=== PATIENT | female | born 2000 | race Caucasian/White ===

== ENCOUNTER 2018-01-20 07:15 | Inpatient (IN) | payer OTHER ==
[~2018-01-20 07:15] MED LIST: ELECTROLYTE-148 SOLN 1,000 ML IV ONE
[2018-01-20] MEDS ORDERED: CITRIC ACID/SODIUM CITRATE 30 ML UNIT-DOSE CUP PO ONE (08:06)
[2018-01-20 08:09] VITALS: BMI 34.3
--- NOTE | 2018-01-20 08:14 | HP ---
Past Medical History - Admission Chief Complaint: 17 yo f ,39.3 weeks ,previous c/s . requsting repeat c /s, risks discussed , , discussed, cx clp, vx -3 , mi , fhr cat 1 History Source: Patient Limitations to Obtaining History: No Limitations - Past Medical History ...: 2 ...Para: 1 ...Term: 1 ...: 0 ...Spon : 0 ...Induced : 0 ...Multiple Gestation: 0 ...LMP: 04/19/17 ... Weeks Gestation by Dates: 39.3 ...EDC by Dates: 01/24/18 ...EDC by Sono: 01/24/18 Infectious Disease: Yes: STD's (previous hx of chlamydia) - Past Surgical History Past Surgical History: Yes: Hx Myomectomy: No Hx Transabdominal Cerclage: No - Smoking History Smoking history: Never smoked Have you smoked in the past 12 months: No - Alcohol/Substance Use Hx Alcohol Use: No - Social History History of Recent Travel: No Home Medications - Allergies Allergies/Adverse Reactions: Allergies Allergy/AdvReac Type Severity Reaction Status Date / Time No Known Allergies Allergy Verified 01/20/18 07:45 - Home Medications Home Medications: Ambulatory Orders Vit/Iron Fum/Folic AC [ Tablet] 1 each PO DAILY 11/06/15 Ferrous Sulfate 325 mg PO DAILY 01/11/18 Review of Systems - Review of Systems Constitutional: reports: No Symptoms Eyes: reports: No Symptoms HENT: reports: No Symptoms Neck: reports: No Symptoms Musculoskeletal: reports: No Symptoms Integumentary: reports: No Symptoms Neurological: reports: No Symptoms Endocrine: reports: No Symptoms Hematology/Lymphatic: reports: No Symptoms Psychiatric: reports: No Symptoms Physical Exam - Maternity Vital Signs: Vital Signs Temperature 98.7 F 01/20/18 07:30 Pulse Rate 105 H 01/20/18 07:30 Respiratory Rate 18 01/20/18 07:30 Blood Pressure 120/79 01/20/18 07:30 O2 Sat by Pulse Oximetry (%) Constitutional: Yes: Well Nourished, No Distress, Calm Eyes: Yes: WNL, Conjunctiva Clear, EOM Intact HENT: Yes: WNL, Atraumatic, Normocephalic Neck: Yes: WNL, Supple, Trachea Midline Cardiovascular: Yes: WNL, Regular Rate and Rhythm Breast(s): Yes: WNL - Abdominal Exam/OB Number of Fetuses: Single Presentation: Vertex Regularity: Irritability Intensity: Unaware Monitor Mode: External Heart Rate Location: [facility] Category: I Accelerations: Uniform Decelerations: None - Vaginal Exam/OB Vaginal Bleediing: No Speculum Exam: No Dilatation (cm): 0 Effacement (%): o Amniotic Membrane Status: Intact Presentation: Vertex/Position Station: -3 - Physical Exam Musculoskeletal: Yes: WNL Extremities: Yes: WNL Edema: LLE: Trace, RLE: Trace Deep Tendon Reflex Grade: Normal +2 ...Motor Strength: WNL Psychiatric: Yes: WNL Hemorrhage Risk Assessment - Risk Factors Medium Risk Factors: Yes: Prior , uterine surgery,or multiple laparotomies Risk Score: 1 Risk Level: Medium Risk Problem List - Problems (1) with 39 completed weeks gestation Code(s): Z3A.39 - 39 WEEKS GESTATION OF (2) Previous section complicating Code(s): O34.219 - MATERNAL CARE FOR UNSP TYPE SCAR FROM PREVIOUS DEL Assessment/Plan repeat c/s, risks discussed, encourged
[2018-01-20] MEDS ORDERED: ELECTROLYTE-148 SOLN 1,000 ML IV SCH (08:15)
[2018-01-20 09:03] LABS: ALBUMIN 2.5 g/dl (3.4-5.0); ALK PHOS 157 U/L (45-117); ANION GAP 8 MMOL/L (8-16); BILIRUBIN,TOTAL 0.4 mg/dL (0.2-1); BLOOD UREA NITROGEN 4 mg/dL (7-18); CALCIUM 8.4 mg/dL (8.5-10.1); CHLORIDE 108 mmol/L (98-107); CO2 24 mmol/L (21-32); CREATININE 0.4 mg/dL (0.55-1.3); GLUCOSE,RANDOM 80 mg/dL (74-106); POTASSIUM 3.8 mmol/L (3.5-5.1); SGOT/AST 16 U/L (15-37); SGPT/ALT 17 U/L (13-61); SODIUM 140 mmol/L (136-145); TOT PROT 5.8 g/dl (6.4-8.2)
[2018-01-20] MEDS ORDERED: morphine SULFATE/Preservative Free 0.5 MG/ML (1cc Syringe) ONE (09:16)
[2018-01-20] MEDS ORDERED: ceFAZolin SODIUM 1 GM VIAL ONE ×2 (09:16→17:17)
[2018-01-20] MEDS ORDERED: OXYTOCIN 20 UNITS in 0.9% NS 40 UNIT/2,000 ML INFUS.BAG IV ONE (09:17)
[2018-01-20] MEDS ORDERED: morphine SULFATE/Preservative Free 0.5 MG/ML (1cc Syringe) SPIN ONE (09:28)
[2018-01-20] MEDS ORDERED: PHENYLEPHRINE HCL 10 MG/1 ML SINGLE DOSE VIAL ONE (09:29)
[2018-01-20] MEDS ORDERED: ONDANSETRON 4 MG/2 ML VIAL IVPUSH PRN (09:49)
[2018-01-20] MEDS ORDERED: BENZOCAINE 20% 57 GM BOTTLE TP PRN (10:19)
[2018-01-20] MEDS ORDERED: BENZOCAINE 28 GM HEMORRHOIDAL OINTMENT PR PRN (10:19)
[2018-01-20] MEDS ORDERED: IBUPROFEN 600 MG TABLET (FP) PO PRN (10:19)
[2018-01-20] MEDS ORDERED: WITCH HAZEL 50% (TUCKS) 40 PAD/JAR PAD TP PRN (10:19)
[2018-01-20] MEDS ORDERED: METHYLERGONOVINE MALEATE 0.2 MG/1 ML AMP IM PRN (10:19)
[2018-01-20] MEDS ORDERED: diphenhydrAMINE HCL 25 MG CAPSULE (FP) PO PRN (10:19)
[2018-01-20] MEDS ORDERED: DEXTROSE 5%-LACTATED RINGERS 1,000 ML IV SCH (10:30)
[2018-01-20] MEDS ORDERED: OXYTOCIN 20 UNITS in 0.9% NS 20 UNIT/1,000 ML INFUS.BAG IV SCH (10:30)
--- NOTE | 2018-01-20 11:16 | OP ---
DATE OF OPERATION: 01/20/2018 PREOPERATIVE DIAGNOSIS: , 39 weeks, previous section, request of repeat section. POSTOPERATIVE DIAGNOSIS: , 39 weeks, previous section, request of repeat section. PROCEDURE: Repeat low segment transverse section. SURGEON: Donovan Hawk MD WOMEN SPECIALIST: KATHERINE River ANESTHESIA: Spinal. ANESTHESIOLOGIST: Emerson Roth MD ESTIMATED BLOOD LOSS: 500 mL. FINDINGS: Live baby boy, TORRES position. OPERATION: The patient was taken to the operating room, had adequate spinal anesthesia. Abdomen and perineum were prepped and draped. Pfannenstiel abdominal skin incision was made. Abdominal wall was cut layer by layer until peritoneum was exposed and incised. Upon entering the abdominal cavity, lower uterine segment was identified, and uterovesical fold of peritoneum was established, bladder was pushed down. Then, with the lower blade of the Cheryle retractor in the pelvis, a low transverse uterine incision was made. Incision extended laterally. Amniotic sac was entered. Clear fluid, head delivered. Nasopharynx was suctioned, and live baby boy was delivered without any difficulty. Placenta was delivered manually. Uterine cavity was cleaned of all remaining tissue. Uterine incision was closed in 2 layers, 1st layer with 0 Biosyn continuous suture, the 2nd layer with 0 Biosyn imbricating the 1st layer. Bladder flap was closed with 0 Biosyn continuous suture. Both tubes and ovaries were checked, were normal. No active bleeding was seen. All the lap pad, sponge, and instrument counts were correct. Then, peritoneum was closed with 0 Biosyn continuous suture, muscles were brought together with interrupted sutures of 0 Biosyn, fascia was closed with 0 Biosyn continuous suture, subcutaneous fat with interrupted suture of 0 Biosyn, and the skin was closed with suha. Patient tolerated the procedure well, left the OR in good condition. Nathaniel [id number]
[2018-01-20] MEDS ORDERED: IBUPROFEN 800 MG/8 ML IJ IVPB ONE (11:52)
[2018-01-20] MEDS: IBUPROFEN 800 MG/8 ML IJ IVPB PRN ×2 (12:00→20:53)
[2018-01-20] MEDS ORDERED: DEXTROSE 5%-WATER - 50 ML IVPB ONE (17:17)
[2018-01-20] MEDS: CEFAZOLIN 1 GM in DEXTROSE 5%-WATER - 50 ML IVPB SCH (17:21)
[2018-01-21] MEDS ORDERED: DEXTROSE 5%-WATER - 50 ML IVPB ONE (01:26)
[2018-01-21] MEDS ORDERED: ceFAZolin SODIUM 1 GM VIAL ONE (01:26)
[2018-01-21] MEDS: CEFAZOLIN 1 GM in DEXTROSE 5%-WATER - 50 ML IVPB SCH (01:27)
[2018-01-21] MEDS: IBUPROFEN 800 MG/8 ML IJ IVPB PRN (03:13)
--- NOTE | 2018-01-21 04:29 | PN ---
Post Progress Note - Subjective Subjective: pt doing well. tolerating diet. Post Day: 1 Type of Delivery: Repeat C/S Vital Signs: Vital Signs Temperature 98.4 F 01/21/18 01:00 Pulse Rate 79 01/21/18 01:00 Respiratory Rate 20 01/21/18 04:00 Blood Pressure 104/53 L 01/21/18 01:00 O2 Sat by Pulse Oximetry (%) 100 01/20/18 11:40 Breast Exam: Yes: Soft Uterus: Yes: Fundus Firm Incision: Yes: Dressing dry and intact Abdomen/GI: Yes: Abdomen soft Lochia: Yes: Rubra Lochia, amount: Small Extremities: Yes: Calves non-tender Problem List - Problems (1) with 39 completed weeks gestation Assessment/Plan: pOD#1 s/p rpt cs doing well d/c rodgers this am diet as tolerated routine postop care Dr. Hernandez Code(s): Z3A.39 - 39 WEEKS GESTATION OF
[2018-01-21 07:49] LABS: BASO % 0.4 % (0-2.0); EOS % 1.3 % (0-4.5); HEMATOCRIT 34.9 % (32.4-45.2); HEMOGLOBIN 11.4 GM/dL (10.7-15.3); MCH 28.9 pg (25.7-33.7); MCHC 32.6 g/dl (32.0-36.0); MEAN CELL VOLUME 88.6 fl (80-96); MEAN PLT VOLUME 8.4 fl (7.5-11.1); MONO % 7.6 % (3.8-10.2); NEUT % 71.7 % (42.8-82.8); PLATELET COUNT 172 K/MM3 (134-434); RBC 3.94 M/mm3 (3.60-5.2); RDW 15.4 % (11.6-15.6); WHITE BLOOD COUNT 9.3 K/mm3 (4.0-10.0)
[2018-01-21] MEDS: SIMETHICONE 80 MG TAB.CHEW (FP) PO PRN ×4 (08:03→23:43)
[2018-01-21] MEDS: ACETAMINOPHEN 325 MG TABLET (FP) PO PRN ×2 (08:03→15:42)
[2018-01-21] MEDS: IBUPROFEN 600 MG TABLET (FP) PO PRN ×4 (08:04→23:44)
[2018-01-21] MEDS: ENOXAPARIN NA (PORCINE) 40 MG/0.4 ML DISP.SYRIN SQ SCH (09:49)
[2018-01-21] MEDS ORDERED: DIPHTH,PERTUSS(ACELL),TET 0.5 ML DISP.SYRIN IM ONE (10:00)
[2018-01-21] MEDS ORDERED: BISACODYL 10 MG SUPP.RECT RC PRN (10:20)
--- NOTE | 2018-01-21 11:37 | PN ---
Progress Note (short form) - Note Progress Note: Anesthesia POD#1 S/P Repeat C- Section under Spinal and Duramorph VSS,no N/V,legs are strong. Nazanin Avalos MD.
[2018-01-21] MEDS: oxyCODONE HCL 5 MG TABLET PO PRN ×3 (17:42→23:43)
[2018-01-22] MEDS: oxyCODONE HCL 5 MG TABLET PO PRN ×6 (01:21→23:29)
[2018-01-22] MEDS: SIMETHICONE 80 MG TAB.CHEW (FP) PO PRN ×5 (06:30→23:29)
[2018-01-22] MEDS: IBUPROFEN 600 MG TABLET (FP) PO PRN ×4 (06:31→23:29)
--- NOTE | 2018-01-22 08:11 | PN ---
Post Progress Note Type of Delivery: Repeat C/S Vital Signs: Vital Signs Temperature 98.2 F 01/21/18 22:00 Pulse Rate 72 01/21/18 22:00 Respiratory Rate 20 01/21/18 22:00 Blood Pressure 112/71 01/21/18 22:00 O2 Sat by Pulse Oximetry (%) 99 01/21/18 21:00 Uterus: Yes: Fundus below umbilicus Incision: Yes: Dressing dry and intact Abdomen/GI: Yes: Abdomen soft Lochia: Yes: Rubra Lochia, amount: Small Extremities: Yes: Calves non-tender Activity: Ambulating - Labs Labs: CBC WBC 9.3 K/mm3 (4.0-10.0) 01/21/18 07:15 RBC 3.94 M/mm3 (3.60-5.2) 01/21/18 07:15 Hgb 11.4 GM/dL (10.7-15.3) 01/21/18 07:15 Hct 34.9 % (32.4-45.2) 01/21/18 07:15 MCV 88.6 fl (80-96) 01/21/18 07:15 MCH 28.9 pg (25.7-33.7) 01/21/18 07:15 MCHC 32.6 g/dl (32.0-36.0) 01/21/18 07:15 RDW 15.4 % (11.6-15.6) 01/21/18 07:15 Plt Count 172 K/MM3 (134-434) D 01/21/18 07:15 MPV 8.4 fl (7.5-11.1) 01/21/18 07:15 Absolute Neuts (auto) 6.7 K/mm3 (1.5-8.0) 01/21/18 07:15 Neutrophils % 71.7 % (42.8-82.8) 01/21/18 07:15 Lymphocytes % 19.0 % (8-40) 01/21/18 07:15 Monocytes % 7.6 % (3.8-10.2) 01/21/18 07:15 Eosinophils % 1.3 % (0-4.5) 01/21/18 07:15 Basophils % 0.4 % (0-2.0) 01/21/18 07:15 Nucleated RBC % 0 % (0-0) 01/21/18 07:15 Assessment/Plan 17yo s/p RLTCS, POD#2 Routine PP care OOB, ambulate PO pain control Anticipate d/c to home by POD#4 Nicolas Blanco MD
[2018-01-22] MEDS: ENOXAPARIN NA (PORCINE) 40 MG/0.4 ML DISP.SYRIN SQ SCH (09:44)
[2018-01-22] MEDS: ACETAMINOPHEN 325 MG TABLET (FP) PO PRN ×2 (14:39→19:16)
[2018-01-22] MEDS ORDERED: SENNOSIDES/DOCUSATE COMBO (SENNA PLUS) TABLET (UD) PO PRN (22:00)
[2018-01-23] MEDS: SIMETHICONE 80 MG TAB.CHEW (FP) PO PRN (04:02)
[2018-01-23] MEDS: ACETAMINOPHEN 325 MG TABLET (FP) PO PRN (04:02)
[2018-01-23] MEDS: IBUPROFEN 600 MG TABLET (FP) PO PRN (04:02)
--- NOTE | 2018-01-23 07:54 | DS ---
Physical Exam-FRONT DESK TEAM MEMBER Vital Signs: Vital Signs Temperature 98.5 F 01/22/18 22:00 Pulse Rate 70 01/22/18 22:00 Respiratory Rate 18 01/22/18 22:00 Blood Pressure 115/71 01/22/18 22:00 O2 Sat by Pulse Oximetry (%) 99 01/21/18 21:00 Constitutional: Yes: Well Nourished, No Distress, Calm Eyes: Yes: WNL, Conjunctiva Clear, EOM Intact HENT: Yes: WNL, Atraumatic, Normocephalic Neck: Yes: WNL, Supple, Trachea Midline Cardiovascular: Yes: WNL, Regular Rate and Rhythm Respiratory: Yes: WNL, Regular, CTA Bilaterally Gastrointestinal: Yes: WNL ...Rectal Exam: Yes: WNL Renal/: Yes: WNL ....Post : Yes: Uterus firm, Uterus non-tender, Slight lochia rubra Breast(s): Yes: WNL Musculoskeletal: Yes: WNL Extremities: Yes: WNL Edema: No Integumentary: Yes: WNL Wound/Incision: Yes: Clean/Dry, Well Approximated Neurological: Yes: WNL, Alert, Oriented ...Motor Strength: WNL Psychiatric: Yes: WNL, Alert, Oriented Labs: CBC, BMP 01/20/18 08:15 Delivery - Delivery Section: Repeat, Low Flap Transverse (no complication) Type of Anesthesia: Spinal Episiotomy/Laceration: None EBL (cc): 500 Delivery, Single - Stages of Labor Date of Delivery: 01/20/18 Time of Delivery: 09:52 Time Placenta Delivered: 09:53 Placenta: Yes: Expressed - Condition of Infant Breaker Layer/Speech And Hearing Director Present: Yes Name: Jorge Osorio Gender: Male Weight: 7 lb 5 oz Position: Right, OA Total Hours ROM (Hrs/Mins): 0/2 - 1 Minute Total Score: 8 5 Minutes Total Score: 9 - Feeding Plan Initial Plan: Elected not to breastfeed exclusively throughout hospitalization Discharge Summary Reason For Visit: REPEAT C SECTION Current Active Problems with 39 completed weeks gestation (Acute) Previous section complicating (Acute) Procedures: Principal: repeat LST c/s Hospital Course: no complication Condition: Good - Instructions Diet, Activity, Other Instructions: regular diet, no intercourse , follow up [facility] care 1 week. if fever, heavy vaginal bleeding call MD Referrals: Donovan Hawk MD [Staff Physician] - Disposition: HOME - Home Medications Comprehensive Discharge Medication List: Ambulatory Orders Vit/Iron Fum/Folic AC [ Tablet] 1 each PO DAILY 11/06/15 Ferrous Sulfate 325 mg PO DAILY 01/11/18 Ibuprofen [Motrin -] 600 mg PO QID #28 tablet 01/23/18
[2018-01-23 08:11] LABS: BASO % 0.5 % (0-2.0); EOS % 3.3 % (0-4.5); HEMATOCRIT 35.7 % (32.4-45.2); HEMOGLOBIN 11.8 GM/dL (10.7-15.3); LYMPH % 28.2 % (8-40); MCH 29.1 pg (25.7-33.7); MEAN CELL VOLUME 88.3 fl (80-96); MEAN PLT VOLUME 7.9 fl (7.5-11.1); PLATELET COUNT 181 K/MM3 (134-434); RBC 4.04 M/mm3 (3.60-5.2); RDW 15.3 % (11.6-15.6); WHITE BLOOD COUNT 6.5 K/mm3 (4.0-10.0)
[2018-01-23 10:11] VITALS: BP 109/63; PULSE 85; TEMP 98.7
[2018-01-23] MEDS: ENOXAPARIN NA (PORCINE) 40 MG/0.4 ML DISP.SYRIN SQ SCH (10:48)
--- NOTE | 2018-01-29 17:06 | PATH ---
Surgical Pathology Report Patient Name: VERA GARCÍA Med. Rec. #: [id number] /Age/Gender: 2000 (Age: 17) / F Account: [id number] Location: [facility] OBS/VAPOR COATER Taken: 01/20/2018 Received: 01/21/2018 Reported: 01/29/2018 Physicians: Donovan Hawk M.D. Specimen(s) Received PLACENTA Clinical History for repeat Final Diagnosis PLACENTA, SECTION: 386 G THIRD TRIMESTER PLACENTA WITH TRIVASCULAR UMBILICAL CORD AND UNREMARKABLE PLACENTAL MEMBRANES. Electronically Signed Yuli Flowers M.D. Gross Description The specimen is received fresh labeled placenta and is a 386 gram, 18.5 x 13.5 x 2.1 cm. placenta with attached membranes and umbilical cord. The attached membranes are moncada, translucent with focal opacities and insert marginally. The umbilical cord measures 33 cm. in length and averages 1.3 cm. in diameter. The cord inserts centrally. No true knots or strictures are identified. Cut surface of the umbilical cord reveals 3 vessels. The surface is david-blue with minimal fibrin deposition and appropriate caliber vessels. The maternal surface is red-brown with focal defects. Sectioning reveals red-brown, spongy parenchyma. No lesions are identified. [employer] Att[employer] sections are submitted in three cassettes as follows: 1- membrane rolls and umbilical cord; 2-3- full thickness sections of placenta. 01/27/2018 saudi01/27/2018
== END 2018-01-23 11:55 | disposition home or self-care (01) | DRG 540 ==
LOC: JLDR 07:15 → J3W 12:26
PROVIDERS: ADMIT Obstetrics & Gynecology; ATTEND Obstetrics & Gynecology
PROC: 10D00Z1 Extraction of Products of Conception, Low, Open Approach (ICD-10-PCS; principal; 2018-01-20)
DX: O34.211 Maternal care for low transverse scar from previous cesarean delivery (principal); N85.8 Other specified noninflammatory disorders of uterus; Z3A.39 39 weeks gestation of pregnancy; Z37.0 Single live birth
CPT/HCPCS: 36415; 80053; 85025; 90686; 90715; 94010; G0008

== ENCOUNTER 2021-01-01 04:43 | Emergency (ER) | payer OTHER ==
[2021-01-01 05:11] VITALS: TEMP 97.9; BMI 33.5
[2021-01-01] MEDS ORDERED: ONDANSETRON 4 MG/2 ML VIAL IVPUSH ONE (06:20)
[2021-01-01] MEDS ORDERED: ACETAMINOPHEN 1000 MG/100 ML VIAL (NON FORMULARY) IVPB ONE (06:20)
[2021-01-01] MEDS ORDERED: ONDANSETRON 4 MG/2 ML VIAL ONE (06:45)
[2021-01-01] MEDS ORDERED: ACETAMINOPHEN INJECTION 100 ML IVPB ONE (06:45)
[2021-01-01 07:03] LABS: BASO % 0.3 % (0-2.0); EOS % 0.4 % (0-4.5); HEMATOCRIT 40.4 % (32.4-45.2); MCHC 34.6 g/dl (32.0-36.0); MEAN CELL VOLUME 86.8 fl (80-96); MEAN PLT VOLUME 8.3 fl (7.5-11.1); MONO % 5.6 % (3.8-10.2); NEUT % 77.7 % (42.8-82.8); PLATELET COUNT 266 10^3/uL (134-434); RBC 4.65 M/mm3 (3.60-5.2); RDW 14.2 % (11.6-15.6); WHITE BLOOD COUNT 9.3 K/mm3 (4.0-10.0)
[2021-01-01 07:29] LABS: CALCIUM 9.5 mg/dL (8.5-10.1)
[2021-01-01 07:30] LABS: ALBUMIN 3.6 g/dl (3.4-5.0); BLOOD UREA NITROGEN 5.2 mg/dL (7-18)
[2021-01-01 07:34] LABS: CREATININE 0.6 mg/dL (0.55-1.3)
[2021-01-01 07:35] LABS: BILIRUBIN,TOTAL 0.6 mg/dL (0.2-1); TOT PROT 7.9 g/dl (6.4-8.2)
[2021-01-01 09:06] VITALS: BP 111/64; PULSE 78
== END 2021-01-01 09:00 | disposition home or self-care (01) ==
LOC: JER 04:43
PROC: 3E033GC Introduction of Other Therapeutic Substance into Peripheral Vein, Percutaneous Approach (ICD-10-PCS; principal; 2021-01-01)
DX: N93.9 Abnormal uterine and vaginal bleeding, unspecified (principal)
CPT/HCPCS: 36415; 76815; 80053; 84702; 85025; 86850; 86900; 86901; 99284-25

== ENCOUNTER 2021-03-24 02:21 | Emergency (ER) | payer OTHER ==
[2021-03-24 03:01] VITALS: BP 122/78; PULSE 58; TEMP 98.3; BMI 33.5
[2021-03-25 19:06] LABS: SARS-CoV-2 NAA Detected (Not Detected)
== END 2021-03-24 03:40 | disposition home or self-care (01) ==
LOC: JER 02:21
DX: B34.9 Viral infection, unspecified (principal); Z11.52 Encounter for screening for COVID-19
CPT/HCPCS: 87804; 87807; 99283-25; C9803; U0003; U0005

== ENCOUNTER 2021-04-17 16:17 | Emergency (ER) | payer OTHER ==
[2021-04-17 16:30] VITALS: BP 100/50; PULSE 83; TEMP 98.8; BMI 32.1
== END 2021-04-17 18:34 | disposition home or self-care (01) ==
LOC: JERFT 16:17
DX: T17.1XXA Foreign body in nostril, initial encounter (principal)
CPT/HCPCS: 99281-25

== ENCOUNTER 2021-04-18 17:14 | Emergency (ER) | payer OTHER ==
[2021-04-18 17:20] VITALS: BP 119/81; PULSE 89; TEMP 97.8; BMI 31.0
[2021-04-18] MEDS ORDERED: diazePAM 5 MG TABLET PO ONE (17:54)
[2021-04-18] MEDS ORDERED: diazePAM 5 MG TABLET ONE (18:01)
[2021-04-18 18:39] LABS: BASO % 0.4 % (0-2.0); EOS % 0.6 % (0-4.5); HEMATOCRIT 43.1 % (32.4-45.2); HEMOGLOBIN 14.4 GM/dL (10.7-15.3); LYMPH % 20.9 % (8-40); MCH 28.6 pg (25.7-33.7); MCHC 33.3 g/dl (32.0-36.0); MEAN CELL VOLUME 85.9 fl (80-96); MEAN PLT VOLUME 8.3 fl (7.5-11.1); MONO % 7.7 % (3.8-10.2); NEUT % 70.4 % (42.8-82.8); PLATELET COUNT 290 10^3/uL (134-434); RBC 5.02 M/mm3 (3.60-5.2); RDW 13.5 % (11.6-15.6); WHITE BLOOD COUNT 8.2 K/mm3 (4.0-10.0)
[2021-04-18 19:22] LABS: ALBUMIN 4.5 g/dl (3.4-5.0); BLOOD UREA NITROGEN 5.8 mg/dL (7-18)
[2021-04-18 19:25] LABS: CREATININE 0.7 mg/dL (0.55-1.3)
[2021-04-18 19:26] LABS: TOT PROT 8.3 g/dl (6.4-8.2)
[2021-04-18 19:27] LABS: BILIRUBIN,TOTAL 0.6 mg/dL (0.2-1)
== END 2021-04-18 21:00 | disposition home or self-care (01) ==
LOC: JERFT 17:14
DX: R42 Dizziness and giddiness (principal); F41.9 Anxiety disorder, unspecified
CPT/HCPCS: 36415; 80053; 85025; 99283-25

== ENCOUNTER 2021-04-27 17:04 | Emergency (ER) | payer OTHER ==
[2021-04-27 17:14] VITALS: BP 121/74; PULSE 61; TEMP 98; BMI 31.2
== END 2021-04-27 20:48 | disposition home or self-care (01) ==
LOC: JER 17:04
DX: R00.1 Bradycardia, unspecified (principal)
CPT/HCPCS: 93005; 93010; 99283-25

== ENCOUNTER 2021-06-12 11:20 | Emergency (ER) | payer OTHER ==
[2021-06-12 11:53] VITALS: BP 110/62; PULSE 68; TEMP 98.1; BMI 29.5
== END 2021-06-12 13:09 | disposition home or self-care (01) ==
LOC: JERFT 11:20 → JER 11:20 → JERFT 13:09
DX: F41.9 Anxiety disorder, unspecified (principal)
CPT/HCPCS: 93005; 93010; 99283-25

== ENCOUNTER 2021-07-03 20:42 | Emergency (ER) | payer SELFPAY ==
[2021-07-03 20:47] VITALS: BP 132/82; PULSE 89; TEMP 97.8; BMI 29.2
[2021-07-03] MEDS ORDERED: IBUPROFEN 600 MG TABLET (FP) PO ONE (22:05)
== END 2021-07-03 22:33 | disposition home or self-care (01) ==
LOC: JERFT 20:42
DX: S93.402A Sprain of unspecified ligament of left ankle, initial encounter (principal); W18.42XA Slipping, tripping and stumbling without falling due to stepping into hole or opening, initial encounter
CPT/HCPCS: 73610-TC-LT-FY; 73630-TC-LT; 99283-25

== ENCOUNTER 2024-09-08 13:05 | Emergency (ER) | payer SELFPAY ==
[2024-09-08] MEDS ORDERED: BUPIVACAINE HCL/PF 0.5% (5MG/ML) 10 ML VIAL ONE (13:57)
[2024-09-08] MEDS ORDERED: LIDOCAINE HCL 2% (20ML MULTI-DOSE VIAL) ONE (13:59)
[2024-09-08] MEDS: BUPIVACAINE HCL/PF 0.5% (5 MG/ML) 30 ML VIAL IJ ONE (14:27)
[2024-09-08] MEDS: LIDOCAINE HCL 2% (50ML VIAL) SNB ONE (14:27)
[2024-09-08 14:50] VITALS: BP 134/82; PULSE 75; RESP 18; TEMP 97.4; BMI 36.8
== END 2024-09-08 14:32 | disposition home or self-care (01) ==
LOC: JERFT 13:05
PROC: 3E0T3BZ Introduction of Anesthetic Agent into Peripheral Nerves and Plexi, Percutaneous Approach (ICD-10-PCS; principal; 2024-09-08)
DX: K04.7 Periapical abscess without sinus (principal)
CPT/HCPCS: 99283-25